=== PATIENT | female | born 1985 ===

== ENCOUNTER 2021-07-04 18:54 | Emergency (ER) | payer OTHER, SELFPAY | END 2021-07-04 21:15 | disposition home or self-care (01) | LOC: ERS 18:54 | DX: S70.361A Insect bite (nonvenomous), right thigh, initial encounter (principal); L03.115 Cellulitis of right lower limb; W57.XXXA Bitten or stung by nonvenomous insect and other nonvenomous arthropods, initial encounter | CPT/HCPCS: 99283 ==